=== PATIENT | male | born 1990 | race Caucasian/White ===

== ENCOUNTER 2021-05-07 11:30 | Emergency (ER) | payer OTHER ==
[~2021-05-07] VITALS: Ht 180.3 cm; Wt 88.5 kg
[~2021-05-07 11:30] MED LIST: BACTRIM DS TAB1 EAC1 PO; HYDROCODONE-AP1 EAC6 PO; IBUPROFEN 800800 MG PO; KEFLEX500 M2 PO; LINEZOLID600 MG PO; NOHOMEMEDICATIONS
[2021-05-07 12:07] LABS: ABSOLUTE BASOPHILS 0.1 thou/uL (0.0-0.2); ABSOLUTE EOSINOPHILS 0.2 thou/uL (0.0-0.7); ABSOLUTE LYMPHOCYTES 2.1 thou/uL (0.8-5.3); ABSOLUTE MONOCYTES 0.6 thou/uL (0.0-1.2); ABSOLUTE NEUTROPHILS 3.6 thou/uL (1.6-8.1); BASOPHILS 1.4 %; EOSINOPHILS 2.4 %; HEMATOCRIT 46.1 % (42.0-52.0); LYMPHOCYTES 32.4 %; MCH 33.5 pg (26.0-34.0); MCHC 34.8 g/dL (28.0-37.0); MCV 96.3 fL (80.0-100.0); MONOCYTES 9.1 %; MPV 9.1 fl. (7.2-11.1); NUCLEATED RBCS 0 /100WBC; PLATELET COUNT* 179 thou/uL (150-400); POLYS 54.7 %; RBC 4.79 mil/uL (4.50-6.00); RDW-CV 13.8 % (10.5-14.5); WBC 6.6 thou/uL (4.0-11.0)
[2021-05-07 12:16] LABS: CALCIUM 8.6 mg/dL (8.5-10.1); CREATININE 1.1 mg/dL (0.6-1.3); POTASSIUM 4.2 mmol/L (3.5-5.1)
[2021-05-07 12:21] LABS: ALBUMIN 3.8 g/dL (3.4-5.0); TOTAL BILIRUBIN 0.5 mg/dL (<0.1-1.0); TOTAL PROTEIN 7.5 g/dL (6.4-8.2)
[2021-05-07] MEDS ORDERED: PEPCID20 MG PO (12:34)
[2021-05-07] MEDS ORDERED: ONDANSETRON ODT4 MG PO (12:34)
[2021-05-07 12:50] VITALS: BP 124/81
--- NOTE | 2021-05-08 10:10 | EKG ---
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
== END 2021-05-07 12:50 | disposition home or self-care (01) ==
LOC: M.ERS 11:30
PROVIDERS: Physician Assistant
DX: R11.2 Nausea with vomiting, unspecified (principal)